=== PATIENT | male | born 1975 | race Two or more races ===

== ENCOUNTER 2019-06-21 14:27 | Emergency (ER) | payer OTHER ==
[2019-06-21 14:30] VITALS: BP 155/91
[2019-06-21] MEDS ORDERED: DIPH,PERTUSS(ACELL),TET VAC/PF 0.5 ML IM-VACC ONE (15:00)
[2019-06-21] MEDS ORDERED: HYDROcodone/APAP 5/325 TABLET PO PRN (15:00)
[2019-06-21] MEDS ORDERED: NEOSPORIN OINT. PKT 1 PACKET ONE (16:19)
--- NOTE | 2019-06-21 16:23 | NUR ---
HEAD DRESSED AND PT DISCHARGED TO CUSTODY OF OFFICERS.
== END 2019-06-21 16:43 | disposition home or self-care (01) ==
LOC: ED 15:29
DX: S01.05XA Open bite of scalp, initial encounter (principal); Y04.1XXA Assault by human bite, initial encounter; Y93.89 Activity, other specified; Y92.148 Other place in prison as the place of occurrence of the external cause; Y99.8 Other external cause status
CPT/HCPCS: 70450; 90471; 90715; 99284